=== PATIENT | male | born 1980 | race Caucasian/White ===

== ENCOUNTER 2023-12-21 09:50 | Emergency (ER) | payer OTHER ==
[2023-12-21 10:06] VITALS: BP 160/100; PULSE 92; RESP 18; TEMP 99.5; BMI 28.5
== END 2023-12-21 11:37 | disposition home or self-care (01) ==
LOC: FER 09:50
DX: S43.51XA Sprain of right acromioclavicular joint, initial encounter (principal); M25.511 Pain in right shoulder; W07.XXXA Fall from chair, initial encounter; Y93.84 Activity, sleeping; Y92.009 Unspecified place in unspecified non-institutional (private) residence as the place of occurrence of the external cause
CPT/HCPCS: 73000-TC-RT-FY; 99283-25